=== PATIENT | male | born 1975 | race Two or more races ===

== ENCOUNTER 2023-07-02 14:44 | Emergency (ER) | payer OTHER ==
[~2023-07-02] VITALS: Ht 182.9 cm; Wt 102.1 kg
[2023-07-02] MEDS ORDERED: CLINDAMYCIN PHOSPHATE 150 MG/ML (600mg) IM STA (16:29)
== END 2023-07-02 18:16 | disposition home or self-care (01) ==
LOC: ER 14:44
DX: L02.32 Furuncle of buttock (principal)